=== PATIENT | female | born 1995 | race Asian ===

== ENCOUNTER 2023-08-01 18:49 | Emergency (ER) | payer BC ==
[2023-08-01] MEDS ORDERED: Ondansetron ODT 4 MG TAB ONE ×2 (21:31→21:32)
[2023-08-01] MEDS ORDERED: cefTRIAXone (ROCEPHIN) 1 GM VIAL ONE (23:34)
== END 2023-08-01 19:08 ==
LOC: CSHERS 18:49
DX: Z53.21 Procedure and treatment not carried out due to patient leaving prior to being seen by health care provider (principal)
CPT/HCPCS: J0696; Q0162

== ENCOUNTER 2023-08-01 20:37 | Emergency (ER) | payer BC ==
[2023-08-01 22:25] LABS: BHCG - Serum Negative (NEGATIVE); Pregs Control Background? CLEAR/WHITE (CLR/WHITE); Pregs Control Bar Appear? YES (CONTROL BAR)
[2023-08-01 22:45] LABS: #Neutrophils 9.5 10x3/uL (1.5-8.4); %Basophils 0.2 % (0.0-2.0); %Eosinophils 0.2 % (0.0-6.0); %Lymphocytes 18.7 % (18.0-47.0); %Monocytes 7.9 % (0.0-10.0); %Neutrophils 72.7 % (40.0-75.0); ALT (SGPT) 24 U/L (8-55); AST (SGOT) 23 U/L (5-34); Albumin 4.6 g/dL (3.5-5.0); Alkaline Phosphatase 57 U/L (40-110); Anion Gap 15 mmol/L (10-20); BUN (Urea Nitrogen) 12 mg/dL (7.0-18.7); Bilirubin, Total 0.5 mg/dL (0.2-1.2); Calc. Creatinine Clearance 0 mL/min (70-130); Carbon Dioxide 20 mmol/L (22-29); Chloride 106 mmol/L (98-107); Estimated GFR 114; Globulin 2.8 g/dL (2.4-3.5); Glucose 92 mg/dL (70-105); Hematocrit 41.1 % (34.9-44.5); Hemoglobin 13.3 g/dL (12.0-15.5); Mean Corpuscular HGB CONC 32.4 g/dL (32.0-36.0); Mean Corpuscular Hemoglobin 25.9 pg (27.0-33.0); Mean Corpuscular Volume 80.1 fl (81.6-98.3); Mean Platelet Volume 10.1 fl (7.4-10.4); Platelet Count 224 10x3/uL (150-450); Potassium 3.9 mmol/L (3.5-5.1); Protein, Total 7.4 g/dL (6.0-8.3); RBC Distribution Width 13.2 % (11.5-14.5); Red Blood Cell (RBC) Count 5.13 10x6/uL (3.90-5.03); Sodium 137 mmol/L (136-145); White Blood Cell (WBC) Count 13.1 10x3/uL (3.5-10.5)
[2023-08-01 23:24] LABS: Bilirubin Neg (Negative); Blood, Urine 150 (Negative); Clarity Cloudy (Clear); Glucose, Urine (Dipstick) Normal (Negative); Ketone, Urine Negative (Negative); Leukocyte 500 (Negative); Nitrite Negative (Negative); Protein, Urine (Dipstick) 30 mg/dl (Neg-Trace); Urobilinogen Normal mg/dL (Less than 2)
[2023-08-01 23:27] LABS: Pregnancy Test - Urine (BHCG) Negative (Negative)
[2023-08-01 23:28] LABS: Pregu Control Background? CLEAR/WHITE (CLR/WHITE); Pregu Control Bar Appear? YES (CONTROL BAR)
[2023-08-01 23:35] LABS: Bacteria/HPF 2+ HPF (None Seen); CAUTI Indications for Culture Pelvic or flank pain; WBC/HPF 21-50 HPF (0-3)
[2023-08-01 23:37] LABS: Urine Culture Reflex Yes Yes
[2023-08-04 03:16] LABS: Chlam.trachomatis by PCR,Urine Not Detected (NotDetected); GC N.gonorrhoeae PCR,UrineVOID Not Detected (NotDetected)
== END 2023-08-01 23:50 | disposition home or self-care (01) ==
LOC: CSHERS 20:37
DX: N39.0 Urinary tract infection, site not specified (principal); Z53.21 Procedure and treatment not carried out due to patient leaving prior to being seen by health care provider
CPT/HCPCS: 74177; 80053; 81001; 81025; 83605; 84703; 85025; 87086; 87491; 87591; 96361; 96374; J0696; Q0162